=== PATIENT | male | born 1975 | race Caucasian/White ===

== ENCOUNTER 2016-10-30 23:13 | Emergency (ER) | payer MEDICAID ==
[~2016-10-30] VITALS: Ht 170.2 cm; Wt 68.0 kg
[~2016-10-30 23:13] MED LIST: DIVA500T51; RISP3TAB13; SERT-112
[2016-10-31 02:05] LABS: BASOPHILS % 1.9 % (0.0-2.0); HEMATOCRIT. 40.1 % (42.0-52.0); HEMOGLOBIN. 13.6 g/dL (14.0-18.0); MEAN CORPUSCULAR HGB CONC 33.9 g/dL (31.0-37.0); MEAN CORPUSCULAR VOLUME 94.4 fL (80.0-94.0); MEAN PLATELET VOLUME 7.4 fl (7.4-10.4); MONOCYTES % 6.5 % (2.0-8.0); NEUTROPHILS % 36.6 % (40.0-76.0); PLATELET 229 x1000/uL (130-400); RED BLOOD CELL COUNT 4.25 mill/uL (4.7-6.1); WHITE BLOOD COUNT 5.1 x1000/uL (4.5-11.0)
[2016-10-31 02:08] LABS: CLARITY URINE CLEAR (CLEAR); COLOR URINE YELLOW (YELLOW); GLUCOSE URINE NEGATIVE (NEGATIVE); KETONES URINE NEGATIVE (NEGATIVE); LEUKOCYTE ESTERASE URINE NEGATIVE (NEGATIVE); NITRITE URINE NEGATIVE (NEGATIVE); OCCULT BLOOD URINE NEGATIVE (NEGATIVE); PROTEIN URINE TRACE (NEGATIVE); SPECIFIC GRAVITY URINE 1.011 (1.005-1.030); UROBILINOGEN URINE 0.2 E.U./dL (0.2-1.0)
[2016-10-31 02:10] LABS: CHLORIDE 106 mEq/L (98-107); INDEX HEMOLYSI 1 (1-3); INDEX ICTERIC 1 (1-4); INDEX LIPEMIC 1 (1-3)
[2016-10-31 02:14] LABS: RBC URINE 0-2 /hpf (0-2); WBC URINE 0-2 /hpf (0-2)
[2016-10-31 02:15] LABS: MUCUS URINE 1+ /lpf (NONE/TRACE); SQUAMOUS EPITHELIAL CELL URINE FEW /lpf (RARE/1+)
[2016-10-31 02:16] LABS: BACTERIA URINE TRACE
[2016-10-31 02:20] LABS: *AMPHETAMINES SCREEN URINE NEGATIVE (NEGATIVE); *BARBITURATES SCREEN URINE NEGATIVE (NEGATIVE); *BENZODIAZEPINES SCREEN URINE PRESUMTIVE POSITIVE (NEGATIVE); *COCAINE SCREEN URINE NEGATIVE (NEGATIVE); CANNABINOID URINE SCREEN NEGATIVE (NEGATIVE); ECSTASY MDMA SCREEN URINE NEGATIVE (NEGATIVE); METHADONE URINE SCREEN NEGATIVE (NEGATIVE); OPIATES URINE SCREEN NEGATIVE (NEGATIVE); PHENCYCLIDINE URINE SCREEN NEGATIVE (NEGATIVE)
[2016-10-31 02:20] LABS: ALANINE AMINOTRANSFERASE 51 IU/L (13-61); ALBUMIN 3.9 g/dL (3.4-5.0); ANION GAP 17; CARBON DIOXIDE 26 mEq/L (21-32); UREA NITROGEN BLOOD 8 mg/dL (7-21); eGFR > 60 mL/min (>60)
[2016-10-31 02:32] LABS: ETHANOL BLOOD 372 mg/dL
[2016-10-31] MEDS ORDERED: DIVALPROEX SODIUM 250MG DR TABLET PO ONE ×2 (17:00→19:15)
[2016-11-01 08:20] VITALS: BP 113/74
== END 2016-11-01 08:36 ==
LOC: ER 23:13
DX: R44.0 Auditory hallucinations (principal); R45.851 Suicidal ideations; F32.9 Major depressive disorder, single episode, unspecified; F43.10 Post-traumatic stress disorder, unspecified
CPT/HCPCS: 36415; 80053; 80305; 81001; 85025; 99285; G0482

== ENCOUNTER 2017-06-14 13:41 | Emergency (ER) | payer MEDICAID ==
[~2017-06-14] VITALS: Ht 165.1 cm; Wt 65.0 kg
[2017-06-14 16:51] LABS: BASOPHILS % 2.9 % (0.0-2.0); EOSINOPHILS % 1.6 % (0.0-5.0); HEMATOCRIT. 42.2 % (42.0-52.0); HEMOGLOBIN. 14.7 g/dL (14.0-18.0); LYMPHOCYTES % 48.7 % (20.0-50.0); MEAN CORPUSCULAR HEMOGLOBIN 32.9 pg (28.0-32.0); MEAN CORPUSCULAR VOLUME 94.7 fL (80.0-94.0); MEAN PLATELET VOLUME 8.1 fl (7.4-10.4); NEUTROPHILS % 38.8 % (40.0-76.0); PLATELET 154 x1000/uL (130-400); RED BLOOD CELL COUNT 4.45 mill/uL (4.7-6.1); RED CELL DISTRIBUTION WIDTH 13.6 % (11.6-14.6)
[2017-06-14 16:56] LABS: CHLORIDE 104 mEq/L (98-107)
[2017-06-14 17:05] LABS: CARBON DIOXIDE 26 mEq/L (21-32)
[2017-06-14 17:27] LABS: ETHANOL BLOOD 347 mg/dL
[2017-06-14 20:24] LABS: CLARITY URINE CLEAR (CLEAR); COLOR URINE YELLOW (YELLOW); GLUCOSE URINE NEGATIVE (NEGATIVE); KETONES URINE NEGATIVE (NEGATIVE); LEUKOCYTE ESTERASE URINE NEGATIVE (NEGATIVE); NITRITE URINE NEGATIVE (NEGATIVE); OCCULT BLOOD URINE NEGATIVE (NEGATIVE); PROTEIN URINE TRACE (NEGATIVE); SPECIFIC GRAVITY URINE 1.012 (1.005-1.030)
[2017-06-14 20:41] LABS: *AMPHETAMINES SCREEN URINE NEGATIVE (NEGATIVE); *BARBITURATES SCREEN URINE NEGATIVE (NEGATIVE); *BENZODIAZEPINES SCREEN URINE NEGATIVE (NEGATIVE); *COCAINE SCREEN URINE NEGATIVE (NEGATIVE); CANNABINOID URINE SCREEN NEGATIVE (NEGATIVE); METHADONE URINE SCREEN NEGATIVE (NEGATIVE); OPIATES URINE SCREEN NEGATIVE (NEGATIVE); PHENCYCLIDINE URINE SCREEN NEGATIVE (NEGATIVE)
[2017-06-15] MEDS ORDERED: LORAZEPAM 1MG TABLET PO ONE (01:45)
[2017-06-15] MEDS ORDERED: FOLIC ACID 1 MG, THIAMINE HCL 100 MG, MVI, ADULT NO.1 10 ML in DEXTROSE 5% WATER 1,000 ML IV ONE ×4 (01:45)
[2017-06-15] MEDS ORDERED: THIAMINE HCL 100MG TABLET PO NR (02:45)
[2017-06-15] MEDS ORDERED: MULTIVITAMINS,THER W-MINERALS TABLET PO NR (02:45)
[2017-06-15] MEDS ORDERED: FOLIC ACID 1MG TABLET PO NR (02:45)
[2017-06-15] MEDS ORDERED: DIVALPROEX SODIUM 500MG ER TABLET PO ONE (15:15)
[2017-06-15] MEDS: RISPERIDONE 0.5MG TABLET PO SCH (16:46)
[2017-06-15 17:30] VITALS: BP 142/76
== END 2017-06-15 19:10 ==
LOC: ER 13:51
DX: T51.0X1A Toxic effect of ethanol, accidental (unintentional), initial encounter (principal); R45.851 Suicidal ideations; F10.229 Alcohol dependence with intoxication, unspecified; Y90.8 Blood alcohol level of 240 mg/100 ml or more; Y92.89 Other specified places as the place of occurrence of the external cause; G40.909 Epilepsy, unspecified, not intractable, without status epilepticus
CPT/HCPCS: 36415; 80053; 80165; 80305; 80307; 80329; 81001; 85025; 99285; G0482; J3411; J3490; J7070

== ENCOUNTER 2017-09-07 17:36 | Emergency (ER) | payer MEDICAID ==
[~2017-09-07] VITALS: Ht 170.2 cm; Wt 70.0 kg
[2017-09-07 17:40] VITALS: BP 146/80
[2017-09-07] MEDS ORDERED: VALPROIC ACID 250MG CAPSULE PO ONE (19:30)
[2017-09-08] MEDS ORDERED: GABA-531 PO (12:34)
[2017-09-08] MEDS ORDERED: DIVA500T3 PO (18:18)
[2017-09-08] MEDS ORDERED: RISP2TAB22 PO (18:19)
== END 2017-09-07 23:00 | disposition home or self-care (01) ==
LOC: ER 17:49
DX: G40.909 Epilepsy, unspecified, not intractable, without status epilepticus (principal); S00.532A Contusion of oral cavity, initial encounter; F32.9 Major depressive disorder, single episode, unspecified; Z91.14 Patient's other noncompliance with medication regimen; F10.20 Alcohol dependence, uncomplicated; X58.XXXA Exposure to other specified factors, initial encounter; Y93.89 Activity, other specified; Y92.488 Other paved roadways as the place of occurrence of the external cause
CPT/HCPCS: 36415; 80165; 99283

== ENCOUNTER 2017-09-16 17:21 | Emergency (ER) | payer MEDICAID ==
[~2017-09-16] VITALS: Ht 172.7 cm; Wt 70.0 kg
[~2017-09-16 17:21] MED LIST changes: +DIVA500T3 PO; -DIVA500T51; +GABA-531 PO; +RISP2TAB22 PO; -RISP3TAB13; -SERT-112
[2017-09-16] MEDS ORDERED: DIVALPROEX SODIUM 500MG ER TABLET PO SCH (21:30)
[2017-09-16] MEDS ORDERED: FOLIC ACID 1 MG, THIAMINE HCL 100 MG, MVI, ADULT NO.1 10 ML in DEXTROSE 5% WATER 1,000 ML IV ONE ×4 (21:30)
[2017-09-16] MEDS ORDERED: LORAZEPAM 1MG TABLET PO ONE (21:30)
[2017-09-16] MEDS ORDERED: OLANZAPINE 10MG TABLET ODT PO ONE (21:30)
[2017-09-16 21:44] LABS: BASOPHILS % 2.5 % (0.0-2.0); HEMATOCRIT. 39.4 % (42.0-52.0); HEMOGLOBIN. 13.5 g/dL (14.0-18.0); LYMPHOCYTES % 49.8 % (20.0-50.0); MEAN CORPUSCULAR HEMOGLOBIN 33.7 pg (28.0-32.0); MEAN CORPUSCULAR VOLUME 98.7 fL (80.0-94.0); MEAN PLATELET VOLUME 7.4 fl (7.4-10.4); MONOCYTES % 12.2 % (2.0-8.0); NEUTROPHILS % 33.5 % (40.0-76.0); PLATELET 210 x1000/uL (130-400); RED CELL DISTRIBUTION WIDTH 13.5 % (11.6-14.6)
[2017-09-16 21:56] LABS: CHLORIDE 106 mEq/L (98-107)
[2017-09-16] MEDS ORDERED: GABAPENTIN 300MG CAPSULE PO SCH (22:00)
[2017-09-16 22:13] LABS: ETHANOL BLOOD 345 mg/dL
[2017-09-17 08:36] LABS: *AMPHETAMINES SCREEN URINE NEGATIVE (NEGATIVE); *BARBITURATES SCREEN URINE NEGATIVE (NEGATIVE); *BENZODIAZEPINES SCREEN URINE NEGATIVE (NEGATIVE); *COCAINE SCREEN URINE NEGATIVE (NEGATIVE); CANNABINOID URINE SCREEN NEGATIVE (NEGATIVE); METHADONE URINE SCREEN NEGATIVE (NEGATIVE); OPIATES URINE SCREEN NEGATIVE (NEGATIVE); PHENCYCLIDINE URINE SCREEN NEGATIVE (NEGATIVE)
[2017-09-17] MEDS: DIVALPROEX SODIUM 500MG DR TABLET PO SCH ×2 (09:53→21:00)
[2017-09-17] MEDS ORDERED: SODIUM CHLORIDE 0.9% 1,000 ML IV ONE (13:00)
[2017-09-18] MEDS: DIVALPROEX SODIUM 500MG DR TABLET PO SCH (09:00)
[2017-09-18 12:19] VITALS: BP 123/75
== END 2017-09-18 12:21 | disposition home or self-care (01) ==
LOC: ER 17:51
DX: R45.851 Suicidal ideations (principal); F10.129 Alcohol abuse with intoxication, unspecified; F31.9 Bipolar disorder, unspecified; G40.909 Epilepsy, unspecified, not intractable, without status epilepticus; D72.819 Decreased white blood cell count, unspecified; D64.9 Anemia, unspecified
CPT/HCPCS: 36415; 80048; 80165; 80305; 80307; 80329; 85025; 96361; 96365; 99284; G0482; J3411; J3490; J7030; J7070; Z7610

== ENCOUNTER 2017-09-29 22:40 | Emergency (ER) | payer MEDICAID ==
[~2017-09-29] VITALS: Ht 172.7 cm; Wt 65.0 kg
[2017-09-30 07:04] LABS: BASOPHILS % 2.6 % (0.0-2.0); HEMATOCRIT. 39.6 % (42.0-52.0); HEMOGLOBIN. 13.4 g/dL (14.0-18.0); LYMPHOCYTES % 53.4 % (20.0-50.0); MEAN CORPUSCULAR HEMOGLOBIN 33.2 pg (28.0-32.0); MEAN PLATELET VOLUME 7.8 fl (7.4-10.4); PLATELET 158 x1000/uL (130-400); RED BLOOD CELL COUNT 4.04 mill/uL (4.7-6.1); RED CELL DISTRIBUTION WIDTH 13.3 % (11.6-14.6)
[2017-09-30 07:07] LABS: CLARITY URINE CLEAR (CLEAR); COLOR URINE YELLOW (YELLOW); KETONES URINE NEGATIVE (NEGATIVE); LEUKOCYTE ESTERASE URINE NEGATIVE (NEGATIVE); NITRITE URINE NEGATIVE (NEGATIVE); OCCULT BLOOD URINE NEGATIVE (NEGATIVE); PH URINE 6.5 (4.5-8.0); PROTEIN URINE TRACE (NEGATIVE); SPECIFIC GRAVITY URINE 1.014 (1.005-1.030)
[2017-09-30 07:16] LABS: CHLORIDE 104 mEq/L (98-107); ETHANOL BLOOD 232 mg/dL
[2017-09-30 07:18] LABS: *COCAINE SCREEN URINE NEGATIVE (NEGATIVE); CANNABINOID URINE SCREEN NEGATIVE (NEGATIVE); METHADONE URINE SCREEN NEGATIVE (NEGATIVE); OPIATES URINE SCREEN NEGATIVE (NEGATIVE)
[2017-09-30 07:19] LABS: *AMPHETAMINES SCREEN URINE NEGATIVE (NEGATIVE); *BARBITURATES SCREEN URINE NEGATIVE (NEGATIVE); *BENZODIAZEPINES SCREEN URINE NEGATIVE (NEGATIVE)
[2017-09-30 08:04] LABS: PHENCYCLIDINE URINE SCREEN NEGATIVE (NEGATIVE)
[2017-09-30 10:21] VITALS: BP 145/82
== END 2017-09-30 10:58 | disposition home or self-care (01) ==
LOC: ER 23:03
DX: F32.9 Major depressive disorder, single episode, unspecified (principal); F10.129 Alcohol abuse with intoxication, unspecified; R45.851 Suicidal ideations; G40.909 Epilepsy, unspecified, not intractable, without status epilepticus; K50.90 Crohn's disease, unspecified, without complications; Y90.7 Blood alcohol level of 200-239 mg/100 ml
CPT/HCPCS: 36415; 80053; 80305; 81003; 85025; 93005; 99285; G0482

== ENCOUNTER 2017-11-13 16:51 | Emergency (ER) | payer MEDICAID ==
[~2017-11-13] VITALS: Ht 165.1 cm; Wt 60.0 kg
[2017-11-13] MEDS ORDERED: SODIUM CHLORIDE 0.9% 1,000 ML IV ONE (18:03)
[2017-11-13 18:35] LABS: CLARITY URINE CLEAR (CLEAR); COLOR URINE YELLOW (YELLOW); KETONES URINE NEGATIVE (NEGATIVE); LEUKOCYTE ESTERASE URINE NEGATIVE (NEGATIVE); NITRITE URINE NEGATIVE (NEGATIVE); OCCULT BLOOD URINE NEGATIVE (NEGATIVE); PH URINE 6.5 (4.5-8.0); PROTEIN URINE NEGATIVE (NEGATIVE); SPECIFIC GRAVITY URINE 1.009 (1.005-1.030); UROBILINOGEN URINE 0.2 E.U./dL (0.2-1.0)
[2017-11-13 18:44] LABS: *AMPHETAMINES SCREEN URINE NEGATIVE (NEGATIVE); *BARBITURATES SCREEN URINE NEGATIVE (NEGATIVE)
[2017-11-13 18:45] LABS: *BENZODIAZEPINES SCREEN URINE NEGATIVE (NEGATIVE); *COCAINE SCREEN URINE NEGATIVE (NEGATIVE); CANNABINOID URINE SCREEN NEGATIVE (NEGATIVE); METHADONE URINE SCREEN NEGATIVE (NEGATIVE); OPIATES URINE SCREEN NEGATIVE (NEGATIVE); PHENCYCLIDINE URINE SCREEN NEGATIVE (NEGATIVE)
[2017-11-13 18:46] LABS: BASOPHILS % 2.9 % (0.0-2.0); EOSINOPHILS % 1.2 % (0.0-5.0); HEMATOCRIT. 38.5 % (42.0-52.0); HEMOGLOBIN. 13.3 g/dL (14.0-18.0); LYMPHOCYTES % 50.3 % (20.0-50.0); MEAN CORPUSCULAR HEMOGLOBIN 34.1 pg (28.0-32.0); MEAN CORPUSCULAR VOLUME 98.4 fL (80.0-94.0); MEAN PLATELET VOLUME 7.7 fl (7.4-10.4); MONOCYTES % 9.4 % (2.0-8.0); NEUTROPHILS % 36.2 % (40.0-76.0); PLATELET 251 x1000/uL (130-400); RED BLOOD CELL COUNT 3.91 mill/uL (4.7-6.1); RED CELL DISTRIBUTION WIDTH 13.2 % (11.6-14.6)
[2017-11-13 18:54] LABS: CHLORIDE 106 mEq/L (98-107)
[2017-11-13 18:59] LABS: AMMONIA 26 uMol/L (<32)
[2017-11-13 19:27] LABS: ETHANOL BLOOD 325 mg/dL
[2017-11-13] MEDS ORDERED: VALPROATE SODIUM 500 MG in SODIUM CHLORIDE 0.9% 100 ML IV STA (19:43)
[2017-11-14 08:55] VITALS: BP 129/78
== END 2017-11-14 09:05 | disposition home or self-care (01) ==
LOC: ER 16:51
DX: F10.229 Alcohol dependence with intoxication, unspecified (principal); R45.851 Suicidal ideations; R56.9 Unspecified convulsions; F43.10 Post-traumatic stress disorder, unspecified; F32.9 Major depressive disorder, single episode, unspecified; Y90.8 Blood alcohol level of 240 mg/100 ml or more
CPT/HCPCS: 36415; 70450; 71045; 80053; 80165; 80305; 80307; 80329; 81003; 82140; 85025; 93005; 96361; 96365; 99285; G0482; J3490; J7030; Z7610; J7050

== ENCOUNTER 2018-01-04 14:16 | Emergency (ER) | payer MEDICAID ==
[~2018-01-04] VITALS: Ht 172.7 cm; Wt 54.0 kg
[~2018-01-04 14:16] MED LIST changes: +DIVAL250 PO
[2018-01-04] MEDS ORDERED: ONDANSETRON HCL 4MG/2ML VIAL IV STA (15:02)
[2018-01-04] MEDS ORDERED: SODIUM CHLORIDE 0.9% 1,000 ML IV ONE (15:02)
[2018-01-04] MEDS ORDERED: LORAZEPAM 2MG/ML CPJ IV ONE (15:15)
[2018-01-04 15:28] LABS: BASOPHILS % 1.5 % (0.0-2.0); CHLORIDE 101 mEq/L (98-107); EOSINOPHILS % 0.9 % (0.0-5.0); HEMATOCRIT. 40.8 % (42.0-52.0); HEMOGLOBIN. 14.1 g/dL (14.0-18.0); LYMPHOCYTES % 29.2 % (20.0-50.0); MEAN CORPUSCULAR HEMOGLOBIN 33.4 pg (28.0-32.0); MEAN CORPUSCULAR VOLUME 96.6 fL (80.0-94.0); MEAN PLATELET VOLUME 8.5 fl (7.4-10.4); MONOCYTES % 10.2 % (2.0-8.0); NEUTROPHILS % 58.2 % (40.0-76.0); PLATELET 97 x1000/uL (130-400); PROTHROMBIN TIME 10.7 sec (9.4-11.6); RED BLOOD CELL COUNT 4.23 mill/uL (4.7-6.1); RED CELL DISTRIBUTION WIDTH 12.7 % (11.6-14.6)
[2018-01-04 15:37] LABS: CREATINE KINASE 608 IU/L (39-308)
[2018-01-04 15:45] LABS: CARBAMAZEPINE < 0.5 ug/mL (4-12); ETHANOL BLOOD 385 mg/dL; PHENOBARBITAL < 2.1 ug/mL (15.0-40.0)
[2018-01-04] MEDS ORDERED: VALPROIC ACID 250MG CAPSULE PO ONE (16:45)
[2018-01-05 05:15] VITALS: BP 113/76
== END 2018-01-05 05:45 | disposition home or self-care (01) ==
LOC: ER 14:31
DX: T51.0X1A Toxic effect of ethanol, accidental (unintentional), initial encounter (principal); G40.909 Epilepsy, unspecified, not intractable, without status epilepticus; Y90.8 Blood alcohol level of 240 mg/100 ml or more; K50.90 Crohn's disease, unspecified, without complications; Z59.0 Homelessness; Y92.488 Other paved roadways as the place of occurrence of the external cause
CPT/HCPCS: 36415; 80053; 80156; 80165; 80184; 80185; 82550; 83880; 84443; 84484; 85025; 85610; 93005; 96374; 96375; 99285; G0482; J2060; J2405; J7030